=== PATIENT | male | born 2000 | race Caucasian/White ===

== ENCOUNTER 2021-01-12 10:07 | Outpatient (CLI) | payer BC, SELFPAY ==
--- NOTE | ~2021-01-12 | XR_ITS ---
EXAMINATION: XR abdomen obstructive series DATE: 01/12/2021 10:45 INDICATION: Right lower quadrant pain TECHNIQUE: Upright and supine views of the abdomen were obtained. COMPARISON: None. FINDINGS: There are no dilated loops of bowel. Bowel gas pattern is normal. No free intraperitoneal g as is identified. The visualized lung bases are clear. IMPRESSION: 1. Nonobstructive bowel gas pattern. Reviewed, dictated and finalized at location B.
[2021-01-12 10:26] LABS: Basophils Absolute Auto 0.05 K/mm3 (0.00-0.10); Basophils Percent Auto 0.5 % (0.0-1.0); Eosinophils Absolute Auto 0.13 K/mm3 (0.02-0.50); Eosinophils Percent Auto 1.3 % (1.0-6.0); Hematocrit 46.5 % (40.0-54.0); Hemoglobin 15.7 g/dL (14.0-18.0); Immature Granulocyte Absolute 0.02 K/mm3 (0.00-0.00); Immature Granulocyte Percent A 0.2 % (0.0-0.0); Lymphocytes Absolute Auto 2.68 K/mm3 (1.10-4.50); Lymphocytes Percent Auto 26.5 % (18.0-42.0); Mean Corpuscular HGB Conc 33.8 g/dL (32.0-36.0); Mean Corpuscular Hemoglobin 28.8 pg (27.0-31.0); Mean Corpuscular Volume 85.3 fL (78.0-102.0); Mean Platelet Volume 10.6 fl (8.7-11.0); Monocytes Absolute Auto 0.62 K/mm3 (0.10-0.90); Monocytes Percent Auto 6.1 % (2.0-11.0); Neutrophils Absolute Auto 6.6 K/mm3 (1.7-7.2); Neutrophils Percent Auto 65.4 % (50.0-70.0); Platelet Count Result 225 K/mm3 (150-420); Red Blood Count 5.45 M/mm3 (4.70-6.10); Red Cell Distribution Width 12.8 % (11.6-14.4); White Blood Count 10.1 K/mm3 (4.8-10.8)
[2021-01-12 11:20] LABS: Alanine Aminotransferase 58 U/L (16-63); Alkaline Phosphatase 118 U/L (46-116); Amylase 59 U/L (25-115); Anion Gap 14 mmol/L (8-16); Aspartate Amino Transferase 23 U/L (15-37); Bilirubin,Total 0.3 mg/dL (0.00-1.00); Blood Urea Nitrogen 14 mg/dL (7-18); Calcium 9.6 mg/dL (8.5-10.1); Carbon Dioxide 27 mmol/L (21-32); Chloride 102 mmol/L (98-108); Estimated Glomerular Filt Rate > 60; Glucose 91 mg/dL (70-99); Lipase 122 U/L (73-393); Osmolality Calculated 296 mOsm/kg (285-295); Potassium 4.2 mmol/L (3.5-5.1); Sodium 143 mmol/L (136-145); Total Protein 7.4 g/dL (6.4-8.2)
[2021-01-12 11:39] LABS: Add Urine Microscopic? NO; Appearance Urine Clear (Clear); Bilirubin Urine Negative (Negative); Blood Urine Negative (Negative); Color Urine Light Yellow (Yellow); Glucose Urine UA Negative (Negative); Ketones Urine Negative (Negative); Leukocyte Esterase Ur Negative LEU/UL (Negative); Nitrate Urine Negative (Negative); Protein Urine Negative (Negative); Urobilinogen Urine 0.2 mg/dL (0.2-1.0)
== END 2021-01-12 10:08 | disposition home or self-care (01) ==
LOC: CHSLAB 10:11
PROVIDERS: PCP Family Medicine; Visit Provider Family Medicine
DX: R10.31 Right lower quadrant pain (principal)
CPT/HCPCS: 36415; 74019; 80053; 81003; 82150; 83690; 85025

== ENCOUNTER 2021-02-15 18:03 | Outpatient (CLI) | payer BC, SELFPAY ==
[2021-02-15 18:41] LABS: SARS-CoV-2 Ag Negative (Negative)
== END 2021-02-15 18:04 | disposition home or self-care (01) ==
LOC: CHSLAB 18:04
PROVIDERS: PCP Family Medicine; Visit Provider Family Medicine
DX: R05 Cough (principal); Z20.822 Contact with and (suspected) exposure to COVID-19
CPT/HCPCS: 87426; C9803

== ENCOUNTER 2021-04-13 09:30 | Outpatient (CLI) | payer BC, SELFPAY ==
[2021-04-13 10:54] LABS: Influenza A QL RT-PCR Negative (Negative); Influenza B QL RT-PCR Negative (Negative); SARS-CoV-2 RNA PCR Negative (Negative)
== END 2021-04-13 09:31 | disposition home or self-care (01) ==
LOC: CHSLAB 09:33
PROVIDERS: PCP Family Medicine; Visit Provider Family Medicine
DX: J00 Acute nasopharyngitis [common cold] (principal); Z20.822 Contact with and (suspected) exposure to COVID-19
CPT/HCPCS: 87081; 87502; 87880; C9803; U0003; U0005

== ENCOUNTER 2021-09-04 09:56 | Emergency (ER) | payer OTHER, SELFPAY ==
--- NOTE | ~2021-09-04 | XR_ITS ---
EXAMINATION: XR knee RT 3V DATE: 09/04/2021 10:42 INDICATION: New onset right knee pain and puncture wound at the patella TECHNIQUE: Anteroposterior, sunrise and crosstable lateral views of the right knee were obtained COMPARISON: None. FINDINGS: Alignment is normal. No fracture. Joint spaces appear normal on nonweightbearing imaging. No joint e ffusion/layering lipohemarthrosis. Soft tissues are unremarkable. No radiopaque foreign bodies or sof t tissue gas. IMPRESSION: 1. Negative right knee radiographs. Reviewed, dictated and finalized at location A.
[2021-09-04 10:13] VITALS: BP 161/101; PULSE 79; RESP 20; TEMP 36.4; O2SAT 99
--- NOTE | 2021-09-04 10:17 | ED.LOWEXIN ---
HPI - Extremity Injury (Lower) General Chief Complaint: Extremity Injury, Lower Stated Complaint: took a rt knee on a piece of steel Time Seen by Provider: 09/04/21 10:17 Source: patient and RN notes reviewed Mode of arrival: ambulatory Limitations: no limitations History of Present Illness HPI Narrative: patient was at work and felt down on the ground in a piece of steel was imbedded into the mod. He felt pain with the abrasion and immediately tried to get up way from it but ended up sitting back on his right leg causing significant hyperflexion of his right knee. complaint: knee injury Onset (ago): hour(s) (1) Injury: Right: knee Type of Injury: inversion Place: work Severity: moderate Relieving factors: rest Exacerbating factors: weight bearing and movement Associated symptoms: swelling and able to partially bear weight Other symptoms: none Related Data Home Medications Medication Instructions Recorded Confirmed lisinopril 20 mg PO DAILY 09/04/21 09/04/21 Allergies Allergy/AdvReac Type Severity Reaction Status Date / Time No Known Allergies Allergy Unverified 09/04/21 10:23 Review of Systems Review of Systems: All systems reviewed & are unremarkable except as noted in HPI and below PMFSH Past Medical History Medical History (Updated 09/04/21 @ 11:00 by Luciano Hutton MD) Hypertension Surgical History Surgical History (Updated 09/04/21 @ 10:51 by Luciano Hutton MD) History of meniscectomy of left knee Hx of meniscectomy of right knee Social History Social History (Updated 09/04/21 @ 10:51 by Luciano Hutton MD) Smoking status: Never smoker Alcohol intake: current Alcohol use details: occasional Substance use: current Substance use type: marijuana Exam Const: General: healthy appearing, no acute distress and alert Nutritional Appearance: well nourished Orientation/consciousness: patient oriented x3 HENMT: Head: normal to inspection Ears: external ears normal Eyes: Conjunctivae: conjunctivae normal Pupils: Equal, round and reactive pupils present EOM: EOMs intact bilaterally Neck: Neck: normal visual inspection Resp: Effort & Inspection: normal respiratory effort Auscultation: clear to auscultation bilaterally Cardio: Rate: regular rate Rhythm: regular rhythm GI: GI Palp: Yes Soft to palpation and No Tenderness to palpation present (GI) Auscultation: normal bowel sounds Back/Spine/Pelvis: Cervical Spine: cervical ROM normal Thoracic/Lumbar Spine: thoraco-lumbar ROM normal Skin: General skin exam: normal color Neuro: General: patient oriented x3, moves all extremities, no meningeal signs, no focal motor deficits and CN's II-XI intact bilaterally Speech: normal speech Extrem: Right lower extremity: knee Details: tenderness Location: of the medial joint line, swelling Location: of the patella, abnormal ROM Details: pain with active ROM during Details: in extension and in flexion and pain with passive ROM during Details: in extension and in flexion, knee ligament exam normal and Sea's Test Details: negative medially and laterally; no deformity Psych: Appearance: grossly normal and well kempt Mental Status: mental status grossly normal Affect: normal affect Attitude: cooperative Thought content: Yes Normal thought content present Course Vital Signs Vital signs: Vital Signs Temperature 36.4 C 09/04/21 10:13 Pulse Rate 79 09/04/21 10:13 Respiratory Rate 20 09/04/21 10:13 Blood Pressure 161/101 H 09/04/21 10:13 Pulse Oximetry 99 09/04/21 10:13 Temperature 36.7 C 09/04/21 11:31 Pulse Rate 70 09/04/21 11:31 Respiratory Rate 20 09/04/21 11:31 Blood Pressure 150/79 H 09/04/21 11:31 Pulse Oximetry 99 09/04/21 11:31 Procedures Orthopedic Splinting/Casting Injury #1: Splinting/Casting Date: 09/04/21 Side: right Lower Extremity Injury Location: knee Lower Extremity Immobilizer: knee immobili
[2021-09-04] MEDS: TETANUS,DIPHTHERIA,AC PERTUSSIS ADULT 0.5 ML (ADACEL) IM (11:10)
[2021-09-04] MEDS: KETOROLAC (*BKC) 60 MG/2 ML VIAL IM (11:10)
[2021-09-04 11:31] VITALS: BP 150/79; PULSE 70; RESP 20; TEMP 36.7; O2SAT 99
== END 2021-09-04 11:37 | disposition home or self-care (01) ==
PROVIDERS: Emergency Provider Emergency Medicine; PCP Family Medicine
DX: S86.911A Strain of unspecified muscle(s) and tendon(s) at lower leg level, right leg, initial encounter (principal); W22.8XXA Striking against or struck by other objects, initial encounter
CPT/HCPCS: 73562; 90715; 99283; J1885; L1830

== ENCOUNTER 2022-08-30 14:34 | Outpatient (CLI) | payer BC, SELFPAY ==
--- NOTE | ~2022-08-30 | XR_ITS ---
XR chest 2V DATE: 08/30/2022 14:48 INDICATION: Wheezing, cough, shortness of breath with exertion TECHNIQUE: 2V COMPARISON: 07/07/2007 PA and lateral chest FINDINGS: Normal heart size. No hilar or mediastinal enlargement. No pulmonary infiltrate or consolid ation, pleural effusion or pulmonary vascular congestion or pneumothorax. IMPRESSION: No active cardiopulmonary disease Reviewed, dictated and finalized at location L. [employer]
== END 2022-08-30 14:35 | disposition home or self-care (01) ==
LOC: CHSIMG 14:36
PROVIDERS: PCP Family Medicine; Visit Provider Family Medicine
DX: J20.9 Acute bronchitis, unspecified (principal)
CPT/HCPCS: 71046

== ENCOUNTER 2023-01-30 17:28 | Outpatient (CLI) | payer OTHER, SELFPAY ==
--- NOTE | ~2023-01-30 | XR_ITS ---
EXAM: XR knee LT 3V DATE: 01/30/2023 17:53 HISTORY: LATERAL PAIN AFTER INJURY . COMPARISON: None available. FINDINGS: Normal mineralization. No fracture or dislocation. No lytic or blastic lesion. Mild osteoa rthritic change. No erosion or periosteal change. Soft tissues within normal limits. IMPRESSION: No acute osseous finding in the left knee. Reviewed, dictated and finalized at location K.
== END 2023-01-30 17:29 | disposition home or self-care (01) ==
PROVIDERS: PCP Family Medicine; Visit Provider Family Medicine
DX: M25.562 Pain in left knee (principal)
CPT/HCPCS: 73562

== ENCOUNTER 2023-02-08 08:22 | Outpatient (RCR) | payer OTHER, SELFPAY ==
--- NOTE | 2023-02-08 08:12 | OPREHPOC ---
Outpatient Therapy Plan of Care This is a Multidisciplinary Plan of Care that may contain components documented by all disciplines (PT, OT, and ST.) PT Problem 1 PT Problem #1 Knowledge Deficit PT Goal 1 Goal Patient to demonstrate independence with HEP Target Visit 6 PT Problem 2 PT Problem #2 Pain PT Goal 1 Goal Patient to report highest pain at 2/10 Target Visit 12 PT Problem 3 PT Problem #3 Impaired Strength PT Goal 1 Goal Patient to demonstrate 5/5 L knee strength to return to lifting for work duties Target Visit 12 PT Problem 4 PT Problem #4 Impaired Range of Motion PT Goal 1 Goal Patient to demonstrate 120 deg of L knee flexion to return to stair navigation at PLOF Target Visit 12 PT Problem 5 PT Problem #5 Impaired Functional Mobil PT Goal 1 Goal 1. Patient to report abiity to work full duty with no increase in pain 2. Patient to score 20% improvement on LEFS Target Visit 12
--- NOTE | 2023-02-08 08:12 | PTOPEVAL1 ---
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 He reports he was working on a trailer and the wood snapped under his L leg and he went through the trailer. He reports he left work that day and scheduled an appointment with MD for same day. He reports he has worked duty this week. He reports since injury pain is about the same. He reports pain is worse with standing, lifting, and walking longer periods of time. He returns to MD on 02/11/23 Patient will return to work as a powerhouse laborer and has to be able to lift, push, pull >100# Reported Pain Level Pain Score 5: Self Report Assessment PT Clinical Summary Patient is a 23 year old male who presents to PT with L knee pain following injury at work. Patient demonstrates decreased L knee strength, decreased L knee flexion ROM and positive L varus stress testing indicating possible L LCL involvement. Patient has difficulty lifting, standing and walking which is all required for patient's work duties. Patient will benefit from skilled PT to address impairments per MD recommendations. Plan of Care Interventions Electrical Stimulation,Gait Training,Hot Pack/Cold Pack,Manual Therapy,Neuro Re-education,Patient/ Caregiver Educati,Therapeutic Activities, Therapeutic Exercise PT Services Indicated Yes Treatment Frequency and 3x weekly for 12 visits Duration These treatments will address the objective and functional deficits as defined above. The patient will be advanced safely and appropriately in order for the patient to progress towards his/her prior level of function. Additional exercises will be introduced and as well as a comprehensive home exercise program upon discharge, if needed, ?to ensure carryover of functional gains achieved in the clinic. This treatment plan has been reviewed and agreement upon by the patient.
--- NOTE | 2023-02-21 07:34 | OPREHPOC ---
Outpatient Therapy Plan of Care This is a Multidisciplinary Plan of Care that may contain components documented by all disciplines (PT, OT, and ST.) PT Problem 1 PT Problem #1 Knowledge Deficit PT Goal 1 Goal Patient to demonstrate independence with HEP Target Visit 6 Progress Met PT Problem 2 PT Problem #2 Pain PT Goal 1 Goal Patient to report highest pain at 2/10 Target Visit 12 Progress Met PT Problem 3 PT Problem #3 Impaired Strength PT Goal 1 Goal Patient to demonstrate 5/5 L knee strength to return to lifting for work duties Target Visit 12 Progress Met PT Problem 4 PT Problem #4 Impaired Range of Motion PT Goal 1 Goal Patient to demonstrate 120 deg of L knee flexion to return to stair navigation at PLOF Target Visit 12 Progress Met PT Problem 5 PT Problem #5 Impaired Functional Mobil PT Goal 1 Goal 1. Patient to report abiity to work full duty with no increase in pain 2. Patient to score 20% improvement on LEFS Target Visit 12 Progress Met
--- NOTE | 2023-02-21 07:34 | PTOPDC ---
Assessment and note entered by Luz Marina Ramsey DPT Evaluation Information Assessment Status Re-evaluation Diagnosis L knee pain Onset 01/30/23 Subjective Information Patient reports since starting PT knee has improved. He reports HEP has helped too. He reports he is ~93% improved. He reports he has returned to all work duties at [employer] including getting up and down on/off trailer. He reports he feels he is ready to DC from PT. Reported Pain Level Pain Score 0: Self Report Assessment PT Clinical Summary Patient has been seen for 6 visits of skilled PT. Patient has met all goals set. He has returned to work at full duty with no pain or limitations. He is independent with HEP and appropriate for DC at this time. Plan of Care PT Services Indicated No
== END 2023-02-21 15:44 | disposition home or self-care (01) ==
LOC: CHSPT 08:22
PROVIDERS: PCP Family Medicine; Visit Provider Family Medicine
DX: M25.562 Pain in left knee (principal)
CPT/HCPCS: 97014; 97110; 97112; 97161; 97530; G0283

== ENCOUNTER 2023-03-25 15:38 | Outpatient (CLI) | payer BC, SELFPAY ==
--- NOTE | ~2023-03-25 | XR_ITS ---
XR cervical spine 4-5V DATE: 03/25/2023 16:21 INDICATION: Neck pain for 2 years. No injury. TECHNIQUE: AP, open-mouth, lateral, swimmer views COMPARISON: 03/25/2023 thoracic spine FINDINGS: There is mild reversal of cervical curvature which may be due to muscle spasm. Minimal levo scoliosis of the cervical and upper thoracic spine. C1 and C2 are normally aligned and the odontoid process is intact. No fracture or dislocation or lock ed facet or prevertebral soft tissue swelling. Cervical interspaces are well preserved. IMPRESSION: Mild reversal of cervical curvature and minimal levoscoliosis of the cervical and upper t horacic spine; otherwise negative Reviewed, dictated and finalized at location L. IMPRESSION: Mild reversal of cervical curvature and minimal levoscoliosis of th e cervical and upper thoracic spine; otherwise negative
--- NOTE | ~2023-03-25 | XR_ITS ---
XR thoracic spine 3V DATE: 03/25/2023 16:21 INDICATION: Neck pain and back pain for 2 years. No injury. TECHNIQUE: AP, lateral, swimmer views COMPARISON: None FINDINGS: No fracture or dislocation or bone destruction. The thoracic interspaces and pedicles are i ntact. No paraspinal soft tissue thickening. IMPRESSION: Negative Reviewed, dictated and finalized at location L. IMPRESSION: Negative
== END 2023-03-25 15:39 | disposition home or self-care (01) ==
LOC: CHSIMG 15:41
PROVIDERS: PCP Family Medicine; Visit Provider Family Medicine
DX: M54.2 Cervicalgia (principal); M54.9 Dorsalgia, unspecified; M53.82 Other specified dorsopathies, cervical region
CPT/HCPCS: 72050; 72072